=== PATIENT | male | born 1990 | race Caucasian/White ===

== ENCOUNTER 2019-09-09 08:39 | Day surgery (SDC) | payer BC ==
[~2019-09-09 08:39] MED LIST: Midazolam 1 MG/ML 2 ML SDV ONE; Propofol 200 MG/20 ML SDV ONE
[2019-09-09] MEDS ORDERED: Sodium Chloride 0.9% 10 ML Syringe FLUSH PRN (08:45)
[2019-09-09] MEDS ORDERED: Lactated Ringers 1,000 ML IV SCH (08:45)
--- NOTE | 2019-09-09 09:38 | PCM.HPR ---
H & P Addendum review - H & P Addendum Review Date of Original H & P: 08/27/19 Date Reviewed: 09/09/19 Time Reviewed: 09:38 Patient was Examined: No Changes
[2019-09-09] MEDS ORDERED: Propofol 200 MG/20 ML SDV ONE (09:45)
[2019-09-09] MEDS ORDERED: Midazolam 1 MG/ML 2 ML SDV ONE (09:45)
--- NOTE | 2019-09-09 10:03 | PCM.OPNOTE ---
- General Post-Op/Procedure Note Date of Surgery/Procedure: 09/09/19 Operative Procedure(s): Colonoscopy Findings: Normal Pre Op Diagnosis: Hematochezia Post-Op Diagnosis: Same Anesthesia Technique: MAC Primary Surgeon: Reyes Evans Anesthesia Provider: Mirian Christensen Complications: none Condition: Good
--- NOTE | 2019-09-09 14:24 | OR ---
Date of Procedure: 09/09/2019 PREOPERATIVE DIAGNOSIS: Hematochezia. POSTOPERATIVE DIAGNOSIS: Normal colonoscopy. PROCEDURE: Colonoscopy. ANESTHESIA: IV sedation. PROCEDURE IN DETAIL: The patient was brought to the procedure room where he was placed on his left side and IV sedation administered. Digital rectal exam was performed, which was normal. Colonoscope was inserted and advanced to the level of the cecum without difficulty. Cecal position was confirmed by identifying the appendiceal lumen and ileocecal valve. Prep was good and surfaces were well visualized. Upon withdrawing the scope, ascending, transverse, and descending colon were normal in appearance. Sigmoid colon and rectum were normal. Retroflexion was normal. Anal canal appears normal. I did not see any blood. I did not identify a source of bleeding. I suspect he probably had an anal fissure that has healed. He tolerated the procedure well and returned to recovery in stable condition. FELIPE MENJIVAR MD /[id number]
== END 2019-09-09 11:20 | disposition home or self-care (01) ==
LOC: LL.SDS 08:39
PROVIDERS: ATTEND Surgery
DX: K92.1 Melena (principal); B37.2 Candidiasis of skin and nail; K62.5 Hemorrhage of anus and rectum; F17.210 Nicotine dependence, cigarettes, uncomplicated
CPT/HCPCS: 45378; J2250; J2704; J7120